=== PATIENT | male | born 1965 | race Caucasian/White ===

== ENCOUNTER 2020-05-14 21:22 | Emergency (ER) | payer OTHER ==
[2020-05-14 21:50] VITALS: BP 121/76
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
[2020-05-14] MEDS ORDERED: IBUPROFEN 600 MG TABLET PO ONE (22:44)
== END 2020-05-14 23:03 | disposition home or self-care (01) ==
LOC: ER 21:22
DX: M25.512 Pain in left shoulder (principal); X50.9XXA Other and unspecified overexertion or strenuous movements or postures, initial encounter; Y93.89 Activity, other specified; Y92.238 Other place in hospital as the place of occurrence of the external cause; Y99.0 Civilian activity done for income or pay
CPT/HCPCS: 99283